=== PATIENT | female | born 1960 | race Caucasian/White ===

== ENCOUNTER 2016-07-17 19:22 | Emergency (ER) | payer OTHER ==
--- NOTE | 2016-07-17 20:51 | DX ---
Right knee 4 Views History: Fall on ice last night, pain. Comparison: None available. Findings: No fracture is identified. Alignment is normal. Bone mineralization is normal. There is mil d tricompartmental osteoarthritis. There is a small joint effusion. Impression: Small joint effusion with no acute osseous findings.
[2016-07-17] MEDS ORDERED: IBUPROFEN 200 MG TAB PO ONE (20:53)
[2016-07-17] MEDS ORDERED: IPRATROPIUM/ALBUTEROL 3 ML DEYVIAL IH ONE (20:57)
[2016-07-17] MEDS ORDERED: ACETAMINOPHEN 325 MG TAB PO ONE ×2 (20:58)
--- NOTE | 2016-07-17 22:05 | UCPHY ---
H & P Time Seen by Provider: 07/17/16 20:03 Patient Type: New Smoking Status: Never smoked Constitutional: Initial Vital Signs Temperature (C) 37.2 C 07/17/16 19:53 Heart Rate 115 H 07/17/16 19:53 Respiratory Rate 20 07/17/16 19:53 Blood Pressure 180/114 H 07/17/16 19:53 O2 Sat (%) 91 L 07/17/16 19:53 O2 Delivery Mode Room Air Allergies/Adverse Reactions: lisinopril Allergy (Verified 07/17/16 19:57) Penicillins Allergy (Verified 07/17/16 19:57) prochlorperazine [From Compazine] Allergy (Verified 07/17/16 19:57) prochlorperazine edisylate [From Compazine] Allergy (Verified 07/17/16 19:57) prochlorperazine maleate [From Compazine] Allergy (Verified 07/17/16 19:57) Home Medications: Medication Instructions Recorded Hydrochlorothiazide 07/17/16 Tumeric 07/17/16 Medical Decision Making - Data Points Laboratory Results: 07/17/16 21:15 Influenza Typ A,B (DFA) NEGATIVE FOR FLU (NEGATIVE) Medications Given: Discontinued Medications Acetaminophen (Tylenol) 325 mg PO EDNOW ONE Stop: 07/17/16 20:59 Last Admin: 07/17/16 21:17 Dose: 325 mg Acetaminophen (Tylenol) 650 mg PO EDNOW ONE Stop: 07/17/16 20:59 Last Admin: 07/17/16 21:17 Dose: 650 mg Albuterol/Ipratropium (Duoneb) 3 ml IH EDNOW ONE Stop: 07/17/16 20:58 Last Admin: 07/17/16 21:17 Dose: 3 ml
[2016-07-17] MEDS ORDERED: NS 1,000 ML IV ONE (22:22)
--- NOTE | 2016-07-17 22:38 | DX ---
PA and Lateral Chest History: Shortness of breath, tachycardia. Comparison: None available. Findings: There is mild peribronchial thickening without focal consolidation. Azygos fissure is noted . There is no pneumothorax or pleural effusion. Heart size is upper normal. Atherosclerotic calcifica tion is present in the aorta. There is no significant pulmonary vascular congestion. Mild degenerativ e change is present in the spine with leftward curvature of the lower thoracic spine. Impression: Mild peribronchial thickening, which could be related to minimal fluid overload or airway s disease.
[2016-07-17 22:42] LABS: % IMMATURE GRANULYOCYTES 0.6 % (0.0-1.1); ABSOLUTE IMMATURE GRANULOCYTES 0.08 10^3/uL (0.00-0.10); ADD DIFF? NO; ADD MORPH? NO; ADD SCAN? NO; ATYPICAL LYMPHOCYTE FLAG 10 (0-99); FRAGMENT RBC FLAG 0 (0-99); HEMATOCRIT 42.8 % (38.0-47.0); HEMOGLOBIN 13.9 g/dL (12.6-16.3); LEFT SHIFT FLG 0 (0-99); LIPEMIA HEMOLYSIS FLAG 80 (0-99); MEAN CELL HEMOGLOBIN 28.8 pg (27.9-34.1); MEAN CELL HEMOGLOBIN CONCENTR. 32.5 g/dL (32.4-36.7); MEAN CELL VOLUME 88.6 fL (81.5-99.8); MEAN PLATELET VOLUME 9.4 fL (8.7-11.7); PLATELET CLUMPS FLAG 10 (0-99); PLATELET COUNT 216 10^3/uL (150-400); RED BLOOD CELL COUNT 4.83 10^6/uL (4.18-5.33); RED CELL DISTRIBUTION WIDTH 14.4 % (11.5-15.2)
[2016-07-17 22:55] LABS: APTT 25.4 SEC (23.0-38.0); INR 1.02 (0.83-1.16); PROTIME(PATIENT) 13.2 SEC (12.0-15.0)
[2016-07-17 23:01] LABS: ALBUMIN 3.5 g/dL (3.5-5.0); BILIRUBIN,TOTAL 0.9 mg/dL (0.1-1.4); CALCIUM 8.9 mg/dL (8.5-10.4); POTASSIUM 3.3 mEq/L (3.5-5.2); TOTAL PROTEIN 6.4 g/dL (6.3-8.2)
[2016-07-17] MEDS ORDERED: IOPAMIDOL (ISOVUE 370) 100 ML BTL IV ONE (23:15)
--- NOTE | 2016-07-17 23:24 | UCPHY ---
H & P Patient Type: New Chief Complaint Nursing Narrative: right knee injury sp falll on ice ~ 0930 today . pain to patella and trouble straightening leg Time Seen by Provider: 07/17/16 20:03 HPI/ROS: 56-year-old female states she slipped on ice injuring her right knee earlier this morning. She has had difficulty lifting it and walking up stairs since that time. While at work this afternoon she noticed that she also began to feel short of breath, or the sensation that she could not take a deep breath. She denies cough, fevers or chills. She does have a history of asthma and uses an albuterol inhaler as a rescue inhaler and Symbicort twice a day Review of systems General no fever no chills no weakness HEENT no eye pain no eye discharge. No eye redness, no sore throat Respiratory no cough, positive shortness of breath Cardiac no chest pain, no peripheral edema GI no abdominal pain, no diarrhea, no constipation, no nausea, no vomiting no flank pain, no hematuria, no dysuria Musculoskeletal no myalgias, positive joint pain Heme no easy bruising, no easy bleeding Endo no polyuria, no polydipsia Skin no rashes, no pruritus Neuro no syncope, no dizziness, no headaches Psych is no suicidal ideation, no homicidal ideation Source: Patient, Family Exam Limitations: No limitations - Personal History Current Tetanus/Diphtheria Vaccine: Yes - Medical/Surgical History Hx Asthma: Yes Hx Chronic Respiratory Disease: Yes Hx Diabetes: No Hx Cardiac Disease: Yes Hx Renal Disease: No Hx Cirrhosis: No Hx Alcoholism: No Hx HIV/AIDS: No Hx Splenectomy or Spleen Trauma: No Other PMH: Pcp a alterpandia. Tetanus ?? FLu Vacc - Family History Significant Family History: No pertinent family hx - Social History Smoking Status: Never smoked Alcohol Use: Rarely Drug Use: None - Physical Exam Exam: 56-year-old female obese, tachycardic, tachypneic, hypertensive in moderate distress secondary to right knee pain, temperature 99.8 HEENT atraumatic normocephalic, extraocular muscles intact, anicteric Oropharynx negative for erythema negative exudate, tolerating her own secretions Neck supple no meningismus Lungs clear to auscultation bilaterally Heart rapid rate , regular rhythm without murmur rub or gallop Abdomen nondistended normoactive bowel sounds soft nontender Back no CVA tenderness, no step-offs, no spinal tenderness Extremities no cyanosis clubbing Right knee-swollen, able to flex to approximately 90, negative anterior posterior drawer, tender to palpation at lateral knee, along the patella and just inferior to the patella, ecchymosis on anterior proximal gillespie, distal pulses intact, no calf tenderness Neuro alert and oriented, no focal deficits Constitutional: Initial Vital Signs Temperature (C) 37.2 C 07/17/16 19:53 Heart Rate 115 H 07/17/16 19:53 Respiratory Rate 20 07/17/16 19:53 Blood Pressure 180/114 H 07/17/16 19:53 O2 Sat (%) 91 L 07/17/16 19:53 O2 Delivery Mode Room Air Allergies/Adverse Reactions: lisinopril Allergy (Verified 07/17/16 19:57) Penicillins Allergy (Verified 07/17/16 19:57) prochlorperazine [From Compazine] Allergy (Verified 07/17/16 19:57) prochlorperazine edisylate [From Compazine] Allergy (Verified 07/17/16 19:57) prochlorperazine maleate [From Compazine] Allergy (Verified 07/17/16 19:57) Home Medications: Medication Instructions Recorded Hydrochlorothiazide 07/17/16 Tumeric 07/17/16 AZITHROMYCIN [Z-PACK] 250 mg PO DAILY #6 tab 07/18/16 methylPREDNISolone [Medrol Dose 1 each PO AD #1 ea 07/18/16 Charlie] Medical Decision Making - Diagnostics Imaging: A chest x-ray negative for infiltrate Chest CT negative for pulmonary embolus Knee x-ray positive for small effusion no fracture ED Course/Re-evaluation: Patient seen and evaluated for knee injury and additionally complained of some shortness of breath, she has a history of asthma. Knee films positive small effusion, no fracture For patient's shortness of breath, DuoNeb given, Solu-Medrol 125 mg IV push given, chest x-ray ordered, influenza swab ordered Influenza negative Chest x-ray negative for infiltrate Patient continued to have tachypnea, tachycardia and therefore labs were sent. Labs significant for elevated D-dimer CT chest done to rule out PE CT chest negative for PE Impression 1. Knee sprain cannot rule out internal derangement Knee immobilizer, follow up with Orthopedics as soon as possible 2. Dyspnea Given patient's history of asthma likely a small asthma exacerbation Patient appears markedly improved after DuoNeb Solu-Medrol IV fluids CT scan negative for pulmonary embolus Patient discharged home on Medrol Dosepak, azithromycin Follow-up primary care physician for what appears to be asthma with bronchitis - Data Points Laboratory Results: Laboratory Results 07/17/16 22:35 07/17/16 22:35 Medications Given: Discontinued Medications Acetaminophen (Tylenol) 325 mg PO EDNOW ONE Stop: 07/17/16 20:59 Last Admin: 07/17/16 21:17 Dose: 325 mg Acetaminophen (Tylenol) 650 mg PO EDNOW ONE Stop: 07/17/16 20:59 Last Admin: 07/17/16 21: Dose: 650 mg Albuterol/Ipratropium (Duoneb) 3 ml IH EDNOW ONE Stop: 07/17/16 20:58 Last Admin: 07/17/16 21: Dose: 3 ml Azithromycin (Zithromax) 500 mg PO EDNOW ONE PRN Reason: Protocol Stop: 07/17/16 23:58 Last Admin: 07/18/16 00:01 Dose: 500 mg Sodium Chloride (Ns) 1,000 mls @ 0 mls/hr IV ONCE ONE PRN Reason: Wide Open Stop: 07/17/16 22:23 Last Admin: 07/18/16 00:13 Dose: Not Given Methylprednisolone Sodium Succinate (Solu-Medrol) 125 mg IVP EDNOW ONE Stop: 07/17/16 23:58 Last Admin: 07/18/16 00:12 Dose: 125 mg Departure - Departure Disposition: Home, Routine, Self-Care Clinical Impression: Right knee sprain, Asthma, Bronchitis Condition: Good Instructions: Knee Immobilizer (ED), Knee Sprain (ED), Asthma (ED), Acute Bronchitis (ED) Referrals: [place],. [Primary Care Provider] - As per Instructions Agustina Scruggs MD [Medical Doctor] - As per Instructions Prescriptions: methylPREDNISolone [Medrol Dose Charlie] 1 each PO AD #1 ea AZITHROMYCIN [Z-PACK] 250 mg PO DAILY #6 tab - PQRS PQRS Measurement: 134: Depression screening and followup, PRIME MD-PHQ2 (12 years and older) Over the last 2 weeks, how often have you been bothered by any of the following problems? 1. Feeling down, depressed, or hopeless? 2. Little interest or pleasure in doing things? Patient answered no to both 1 and 2 130: Documentation of medications. Reviewed all patient medications, doses, route and frequency. 226: Do you smoke? No. 47: 65 and older: Advanced care planning. Patient designates surrogate decision maker as spouse.. [Patient has advanced directive.] 51: 18 years old and older with diagnosis of COPD, spirometry performance. [Patient has no history of COPD 52: 18 years old and older with COPD and symptoms of COPD or FEV1<60% predicted prescribed a B Agonist. [Spirometry not performed; equipment not available.]
[2016-07-17] MEDS ORDERED: methylPREDNISolone SOD SUCC 125 MG/2 ML VIAL ONE (23:57)
[2016-07-17] MEDS ORDERED: methylPREDNISolone SOD SUCC 125 MG/2 ML VIAL IVP ONE (23:57)
[2016-07-17] MEDS ORDERED: AZITHROMYCIN 250 MG TAB PO ONE (23:57)
--- NOTE | 2016-07-18 00:01 | CT ---
CT Pulmonary Angiogram History: Shortness of breath, elevated D-dimer. Comparison: PA and lateral chest same day. Technique: Axial contrast-enhanced images were obtained through the chest following the uneventful in travenous administration of 90 mL Isovue-370. Creatinine is 1.0. Multiplanar reformations were perfo rmed through the pulmonary arteries. Dose reduction techniques were utilized. Findings: Visualization of peripheral segmental and subsegmental vessels is slightly limited by respi ratory motion. There is no visible pulmonary embolus. Minimal air in the main pulmonary artery is lik oneil related to IV placement. Mild peribronchial thickening is present with dependent atelectasis. Yohana ear atelectasis/scarring is present in the medial left lower lobe. Azygos fissure and accessory left upper lobe fissure are noted. Heart size is normal. Left ventricular hypertrophy is noted. The interv entricular septum is normal. The ascending aorta is ectatic, measuring 3.8 cm, without dissection. No pathologically enlarged lymph nodes are identified. A 1.5 cm left thyroid nodule is present. Mild de generative change is present in the spine. Moderate stool is present in the colon. A moderate hiatal hernia is noted. Impression: 1. No visible pulmonary embolus. 2. Left ventricular hypertrophy. 3. 1.5 cm left thyroid nodule. Thyroid ultrasound is recommended for further evaluation. 4. Moderate hiatal hernia. 5. Ectatic ascending aorta, measuring 3.8 cm. 6. Additional findings as above. Findings discussed with Jayne Birch July 17, 2016 at 2353 hours.
[2016-07-18 00:14] VITALS: BP 161/88; PULSE 99; RESP 18; TEMP 99; O2SAT 96
== END 2016-07-18 00:15 | disposition home or self-care (01) ==
LOC: CED 19:22
DX: S83.91XA Sprain of unspecified site of right knee, initial encounter (principal); J45.909 Unspecified asthma, uncomplicated; J20.9 Acute bronchitis, unspecified; Z88.0 Allergy status to penicillin; W00.0XXA Fall on same level due to ice and snow, initial encounter
CPT/HCPCS: 71020-PO; 71275-PO; 73564-PO; 80053-PO; 85025-PO; 85378-PO; 85610-PO; 85730-PO; 87400-PO; 96374-PO; 99205-PO; G0463-PO; Q9967

== ENCOUNTER 2016-10-07 07:43 | Observation (INO) | payer OTHER ==
[2016-10-07] MEDS ORDERED: fentaNYL 250 MCG/5 ML INJ ONE (08:08)
[2016-10-07] MEDS ORDERED: PROPOFOL 200 MG/20 ML VIAL ONE (08:09)
[2016-10-07] MEDS ORDERED: LIDOCAINE 1% 2 ML INJ ONE (08:21)
[2016-10-07] MEDS ORDERED: LIDO/EPI 1% **Not for Epidural 20 ML MDV ONE (08:31)
[2016-10-07] MEDS ORDERED: LIDOCAINE 1% 5 ML SDV ID PRN (08:36)
[2016-10-07] MEDS ORDERED: LR 1,000 ML IV ONE (08:36)
[2016-10-07 08:58] LABS: ANION GAP 10 mEq/L (8-16); CALCIUM 9.7 mg/dL (8.5-10.4); CARBON DIOXIDE 27 mEq/l (22-31); CHLORIDE 107 mEq/L (97-110); CREATININE 0.7 mg/dL (0.6-1.0); GLOMERULAR FILTRATION RATE > 60; GLUCOSE 94 mg/dL (70-100); POTASSIUM 3.8 mEq/L (3.5-5.2); SODIUM 144 mEq/L (134-144)
[2016-10-07] MEDS ORDERED: ALBUTEROL 3 ML DEYVIAL IH ONE (09:00)
[2016-10-07] MEDS ORDERED: DEXAMETHASONE 4 MG/ML VIAL IVP ONE (09:00)
[2016-10-07] MEDS ORDERED: MIDAZOLAM 2 MG/2 ML VIAL ONE (09:06)
[2016-10-07] MEDS ORDERED: CLINDAMYCIN 900 MG/DEXTROSE/50 ML BAG IV ONE (09:07)
[2016-10-07] MEDS ORDERED: ONDANSETRON 4 MG/2 ML VIAL IVP PRN (09:25)
[2016-10-07] MEDS ORDERED: CLINDAMYCIN 900 MG/DEXTROSE 50 ML IV ONE (09:30)
[2016-10-07] MEDS ORDERED: fentaNYL 100 MCG/2 ML INJ ONE (11:58)
--- NOTE | 2016-10-07 12:16 | GOP ---
[f rep st] OPERATIVE REPORT DATE OF OPERATION: 10/07/2016 SURGEON: Donald Coffman MD ANESTHESIA: General endotracheal. PREOPERATIVE DIAGNOSIS: Left thyroid mass. POSTOPERATIVE DIAGNOSIS: Left thyroid mass. PROCEDURE PERFORMED: Total thyroidectomy. 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 ESTIMATED BLOOD LOSS: 30 mL. DESCRIPTION OF PROCEDURE: Patient was placed on the operating table in supine position. After induction of adequate general endotracheal anesthesia, sterile draping was performed. A shoulder roll was placed beneath the patient's shoulders to extend the neck. A naturally-occurring skin crease overlying the proposed incision site was infiltrated utilizing 1% lidocaine with 1:100,000 parts of epinephrine. Prep and drape then was completed, and the incision was then carried down through the anterior neck skin and through the platysma muscle. Flaps were then elevated superiorly and inferiorly in the subplatysmal plane, widely exposing the thyroid bed. The vertical midline of the neck was identified. The soft tissues overlying the vertical midline were then incised, and dissection then proceeded down to the level of the strap musculature. Initially, the left thyroid lobe was encountered. The strap musculature was reflected off the left thyroid lobe, and then dissection was performed further superiorly. The superior vascular pedicle was encountered. This was clamped, cut, and proximal portion was tied with 2-0 silk suture ligature. The distal portion was tied with 2-0 silk tie. Dissection then proceeded further inferiorly, directly superficial to the thyroid capsule to reflect parathyroid tissue out of the surgical field. As dissection proceeded further inferiorly along the posterior aspect of the thyroid gland, the recurrent laryngeal nerve was identified. It was then dissected further proximally, keeping the nerve under direct visualization and maintaining its integrity. The inferior thyroid pedicle was encountered. This was clamped, cut and tied with 2-0 silk ties. The thyroid tissue was then reflected off the trachea, keeping the current laryngeal nerve under direct visualization and safe. Once the left thyroid lobe had been completely resected, it was sent for frozen section analysis. 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 At this point, attention was directed to the right thyroid lobe. Dissection of the strap musculature off the thyroid was performed, and further cephalad, the superior vascular pedicle was encountered. This was clamped, cut and tied with 2-0 silk ties distally and 2-0 silk suture proximally. Further dissection then proceeded along the lateral and posterior aspects of the thyroid gland in an immediately supracapsular plane. The recurrent laryngeal nerve was identified, and it was dissected further proximally in the neck. It was then dissected further distally to the region of the cricoarytenoid joint, keeping the nerve under direct visualization. The thyroid tissue was then reflected off the recurrent laryngeal nerve. The inferior vascular pedicle was clamped, cut, and tied with 2-0 silk ties. The soft tissue connection in the region of Marshall's ligament and the remaining soft tissues between the thyroid were then divided with Bovie electrocautery, reflecting the right thyroid lobe and allowing it to be delivered. The left paratracheal region was again extensively examined. No evidence of metastatic disease was noted with thorough inspection and palpation. It was therefore elected not to proceed with left paratracheal node dissection. A 10-Hungarian drain was placed deeply into the wound and brought out through the right lateral aspect of the incision and sutured into place with 2- 0 silk suture ligature. The strap muscles were then reapproximated in the vertical midline once hemostasis had been obtained using the bipolar electrocautery. The strap muscles were approximated utilizing 3-0 Vicryl sutures, and a subcutaneous closure of 0 Vicryl sutures was performed. Skin was closed with running locked 5-0 Prolene sutures. A pressure dressing was applied. The patient was then awakened and transferred to the postanesthesia recovery area in stable condition. FLUID REPLACEMENT: 600 mL. /[id number]/MODL MTDD
[2016-10-07] MEDS: DEXAMETHASONE 4 MG/ML VIAL IVP SCH ×2 (14:08→22:30)
[2016-10-07] MEDS: D5W 1/2 NS W/ 20 KCl/L 1,000 ML IV SCH (14:36)
[2016-10-07] MEDS: OXYCODONE/APAP 5/325 TAB PO PRN ×2 (15:22→20:38)
[2016-10-07 17:07] LABS: IONIZED CALCIUM 1.08 MMOL/L (1.12-1.30)
[2016-10-07] MEDS: CLINDAMYCIN 600 MG/DEXTROSE 50 ML IV SCH (17:15)
--- NOTE | 2016-10-07 17:23 | SOAPPROG ---
SOAP Progress Note Assessment/Plan: Assessment: 56 year old female s/p total thyroid. Doing well. Voice strong, no stridor. Neck flat. Ionized calcium 1.10. - Tums TID -- will recheck ionized calcium - Will change dressing tomorrow and assess for drain removal tomorrow AM 10/07/16 17:19 Subjective: 56 year old female s/p total thyroidectomy. Doing well. Mild pain. No voice complaints. Objective: Vital Signs Temp Pulse Resp BP Pulse Ox 36.6 C 87 16 136/91 H 94 10/07/16 15:00 10/07/16 15:00 10/07/16 15:00 10/07/16 15:00 10/07/16 15:00 Laboratory Results 10/07/16 08:30 10/06/16 10/07/16 10/08/16 05:59 05:59 05:59 Intake Total 1425 Output Total 98 Balance 1327 Voice strong, no stridor Neck flat Drain in place, dressing in place ICD10 Worksheet Patient Problems: Problems Problem Status Onset H/O thyroidectomy Acute - ICD10 Problem Qualifiers (1) H/O thyroidectomy
[2016-10-07] MEDS: CALCIUM CARBONATE 500 MG CHEWABLE TAB PO SCH (20:38)
[2016-10-07 22:49] LABS: IONIZED CALCIUM 1.09 MMOL/L (1.12-1.30)
[2016-10-08] MEDS: OXYCODONE/APAP 5/325 TAB PO PRN ×2 (00:28→05:18)
[2016-10-08] MEDS: D5W 1/2 NS W/ 20 KCl/L 1,000 ML IV SCH (00:28)
[2016-10-08] MEDS: CLINDAMYCIN 600 MG/DEXTROSE 50 ML IV SCH ×2 (00:28→08:40)
[2016-10-08] MEDS: DEXAMETHASONE 4 MG/ML VIAL IVP SCH (05:18)
[2016-10-08 05:32] LABS: IONIZED CALCIUM 1.13 MMOL/L (1.12-1.30)
--- NOTE | 2016-10-08 07:54 | SOAPPROG ---
SOAP Progress Note Assessment/Plan: pt s/p total thyroidectomy. Doing well. no numbness or tingling. pain controlled. o:- neck- dressing intact, drain removed, new dressing placed. Plan:pt s/p total thyroid. F/u 5 days for suuture removal. call if any numbness or tingling. Pt seen by Dr. Coffman. 10/08/16 07:51 10/08/16 07:53 Objective: Vital Signs Temp Pulse Resp BP Pulse Ox 36.6 C 88 14 122/78 H 95 10/08/16 05:20 10/08/16 05:20 10/08/16 05:20 10/08/16 05:20 10/08/16 05:20 Laboratory Results 10/07/16 08:30 10/07/16 10/08/16 10/09/16 05:59 05:59 05:59 Intake Total 2175 Output Total 908 Balance 1267 ICD10 Worksheet Patient Problems: Problems Problem Status Onset H/O thyroidectomy Acute
[2016-10-08] MEDS: CALCIUM CARBONATE 500 MG CHEWABLE TAB PO SCH (08:40)
[2016-10-08 09:25] VITALS: BP 140/79; PULSE 91; RESP 16; TEMP 98.6; O2SAT 91
== END 2016-10-08 10:03 | disposition home or self-care (01) ==
LOC: F3N 07:43 → F3E 12:28
PROVIDERS: ADMIT Otolaryngology; ATTEND Otolaryngology
PROC: 0GTK0ZZ Resection of Thyroid Gland, Open Approach (ICD-10-PCS; principal; 2016-10-07 09:00)
DX: C73 Malignant neoplasm of thyroid gland (principal)
CPT/HCPCS: 60240; G0378; J1100; J2250; J2704; J3010